=== PATIENT | female | born 1955 | race Caucasian/White ===

== ENCOUNTER 2017-10-27 12:29 | Emergency (ER) | payer OTHER ==
[2017-10-27 15:22] LABS: WHITE BLOOD COUNT 8.7 10^3/ul (4.8-10.8)
[2017-10-27 15:22] LABS: ABNORMAL IP MESSAGE 1; HEMATOCRIT 39.1 % (37.0-47.0); HEMOGLOBIN 13.1 g/dl (12.0-16.0); MEAN CORPUSCULAR HEMOGLOBIN 30.3 pg (29.0-33.0); MEAN CORPUSCULAR HGB CONC 33.5 g/dl (32.0-37.0); MEAN CORPUSCULAR VOLUME 90.3 fl (82.0-101.0); MEAN PLATELET VOLUME 13.2 fl (7.4-10.4); PLATELET COUNT 167 10^3/UL (140-415); RED BLOOD COUNT 4.33 10^6/ul (4.20-5.40); RED CELL DISTRIBUTION WIDTH 13.8 % (11.5-14.5)
[2017-10-27 15:24] LABS: ADD MAN DIFF? YES; POSITIVE DIFF @See below
[2017-10-27 15:28] LABS: ADD UMIC NO; UR ASCORBIC ACID NEGATIVE (NEGATIVE); UR BILIRUBIN (Dip) NEGATIVE (NEGATIVE); UR BLOOD (Dip) NEGATIVE (NEGATIVE); UR CLARITY CLEAR (CLEAR); UR COLOR YELLOW (YELLOW); UR GLUCOSE (Dip) NEGATIVE (NEGATIVE); UR KETONES (Dip) NEGATIVE (NEGATIVE); UR LEUKOCYTE ESTERASE (Dip) NEGATIVE Leu/ul (NEGATIVE); UR NITRITE (Dip) NEGATIVE (NEGATIVE); UR SPECIFIC GRAVITY (Dip) 1.021 (1.003-1.030); UR TOTAL PROTEIN (Dip) NEGATIVE (NEGATIVE); UR UROBILINOGEN (Dip) NEGATIVE (NEGATIVE)
[2017-10-27] MEDS: ONDANSETRON 4 MG INJ IV (15:29)
[2017-10-27] MEDS: morphine 2 MG INJ IV (15:29)
[2017-10-27 15:37] LABS: ALANINE AMINOTRANSFERASE 33 IU/L (13-69); ALBUMIN 4.2 g/dl (3.3-4.9); ALBUMIN/GLOBULIN RATIO 1.31; ALKALINE PHOSPHATASE 158 IU/L (42-121); ANION GAP 21 (8-16); ASPARTATE AMINO TRANSFERASE 28 IU/L (15-46); BILIRUBIN,INDIRECT 0.3 mg/dl (0-1.1); BILIRUBIN,TOTAL 0.3 mg/dl (0.2-1.3); BLOOD UREA NITROGEN 26 mg/dl (7-20); CALCIUM 9.1 mg/dl (8.4-10.2); CARBON DIOXIDE 23 mmol/L (21-31); CHLORIDE 103 mmol/L (97-110); CREATININE 0.78 mg/dl (0.44-1.00); GLUCOSE 210 mg/dl (70-220); LIPASE 154 U/L (23-300); POTASSIUM 4.4 mmol/L (3.5-5.1); SODIUM 143 mmol/L (135-144); TOTAL PROTEIN 7.4 g/dl (6.1-8.1)
[2017-10-27 18:13] LABS: BAND NEUTROPHILS #M 0.2 10^3/ul (0.0-0.6); BAND NEUTROPHILS % (M) 3 % (0-4); EOSINOPHILS % (M) 2 % (0-7); LYMPHOCYTES #M 1.1 10^3/ul (0.8-2.9); LYMPHOCYTES % (M) 13 % (15-51); MONOCYTE #M 0.3 10^3/ul (0.3-0.9); MONOCYTES % (M) 4 % (0-11); PLATELET ESTIMATE NORMAL; SEG NEUT #M 6.9 10^3/ul (1.7-7.5); SEGMENTED NEUTROPHILS (M) % 79 % (39-77)
== END 2017-10-27 17:20 | disposition home or self-care (01) ==
LOC: FTE 12:29
DX: R10.11 Right upper quadrant pain (principal); R10.13 Epigastric pain; E11.9 Type 2 diabetes mellitus without complications; I10 Essential (primary) hypertension
CPT/HCPCS: 36415; 71045; 76705; 80053; 81003; 83690; 85025; 96374; 96375; 99285-25

== ENCOUNTER 2018-12-19 10:30 | Emergency (ER) | payer OTHER ==
[2018-12-19] MEDS: ONDANSETRON 4 MG INJ IV (12:09)
[2018-12-19] MEDS: BELLADONNA/PHENOBARBITAL TAB PO (12:09)
[2018-12-19] MEDS: SOD CHLORIDE 0.9% 500 ML IV (12:09)
[2018-12-19] MEDS: LIDOCAINE/MYLANTA 40 ML BTL PO (12:09)
[2018-12-19] MEDS: KETOROLAC 15 MG INJ IV (12:10)
[2018-12-19 12:40] LABS: ADD MAN DIFF? NO
[2018-12-19 12:46] LABS: WHITE BLOOD COUNT 7.6 10^3/ul (4.8-10.8)
[2018-12-19 12:46] LABS: ABNORMAL IP MESSAGE 1; BASOPHILS % 0.4 % (0.0-2.0); EOSINOPHILS # 0.2 10^3/ul (0.0-0.5); EOSINOPHILS % 3.1 % (0.0-7.0); HEMATOCRIT 40.1 % (37.0-47.0); HEMOGLOBIN 12.8 g/dl (12.0-16.0); LYMPHOCYTES # 2.1 10^3/ul (0.8-2.9); LYMPHOCYTES % 27.8 % (15.0-51.0); MEAN CORPUSCULAR HGB CONC 31.9 g/dl (32.0-37.0); MEAN CORPUSCULAR VOLUME 90.7 fl (82.0-101.0); MEAN PLATELET VOLUME 13.3 fl (7.4-10.4); MONOCYTE # 0.5 10^3/ul (0.3-0.9); NEUTROPHIL # 4.7 10^3/ul (1.6-7.5); NEUTROPHILS % 61.3 % (39.0-77.0); PLATELET COUNT 205 10^3/UL (140-415); RED BLOOD COUNT 4.42 10^6/ul (4.20-5.40); RED CELL DISTRIBUTION WIDTH 14.3 % (11.5-14.5)
[2018-12-19 12:50] LABS: ALANINE AMINOTRANSFERASE 16 IU/L (13-69); ALBUMIN 4.2 g/dl (3.3-4.9); ALKALINE PHOSPHATASE 136 IU/L (42-121); ANION GAP 11 (5-13); ASPARTATE AMINO TRANSFERASE 37 IU/L (15-46); BILIRUBIN,INDIRECT 0.1 mg/dl (0-1.1); BILIRUBIN,TOTAL 0.1 mg/dl (0.2-1.3); BLOOD UREA NITROGEN 14 mg/dl (7-20); CALCIUM 10.1 mg/dl (8.4-10.2); CARBON DIOXIDE 24 mmol/L (21-31); CHLORIDE 107 mmol/L (97-110); CREATININE 0.61 mg/dl (0.44-1.00); Estimated GFR > 60 mL/min (>60); GLUCOSE 114 mg/dl (70-220); LIPASE 79 U/L (23-300); POTASSIUM 4.2 mmol/L (3.5-5.1); SODIUM 142 mmol/L (135-144); TOTAL PROTEIN 7.7 g/dl (6.1-8.1)
[2018-12-19 12:57] LABS: POSITIVE DIFF @See below
[2018-12-19 15:16] LABS: ADD UMIC NO; UR ASCORBIC ACID NEGATIVE (NEGATIVE); UR BILIRUBIN (Dip) NEGATIVE (NEGATIVE); UR BLOOD (Dip) NEGATIVE (NEGATIVE); UR CLARITY CLEAR (CLEAR); UR COLOR YELLOW (YELLOW); UR GLUCOSE (Dip) NEGATIVE (NEGATIVE); UR KETONES (Dip) NEGATIVE (NEGATIVE); UR LEUKOCYTE ESTERASE (Dip) NEGATIVE Leu/ul (NEGATIVE); UR NITRITE (Dip) NEGATIVE (NEGATIVE); UR TOTAL PROTEIN (Dip) NEGATIVE (NEGATIVE); UR UROBILINOGEN (Dip) NEGATIVE (NEGATIVE)
== END 2018-12-19 16:08 | disposition home or self-care (01) ==
LOC: E/R 10:30
DX: R10.11 Right upper quadrant pain (principal); I10 Essential (primary) hypertension; E11.9 Type 2 diabetes mellitus without complications; R11.0 Nausea; Z79.4 Long term (current) use of insulin; Z79.82 Long term (current) use of aspirin
CPT/HCPCS: 36415; 76705; 80053; 81003; 82962; 83690; 85025; 96374; 96375; 99285-25

== ENCOUNTER 2019-07-06 08:48 | Inpatient (IN) | payer OTHER ==
[2019-07-06] MEDS: FUROSEMIDE 20 MG INJ IV (11:17)
[2019-07-06] MEDS ORDERED: ACETAMINOPHEN 325 MG TAB PO (12:00)
[2019-07-06] MEDS ORDERED: ONDANSETRON 4 MG INJ IV ×2 (12:00→14:30)
[2019-07-06] MEDS: NITROGLYCERIN 2% 1 GM OINT PKT TD (12:01)
[2019-07-06] MEDS ORDERED: DEXTROSE 50% 50 ML SYRINGE IV ×2 (14:30)
[2019-07-06] MEDS ORDERED: GLUCAGON 1 MG INJ IM (14:30)
[2019-07-06] MEDS ORDERED: GLUCOSE GEL 15 GRAM TUBE BUCCAL (14:30)
[2019-07-06] MEDS ORDERED: GLUCOSE GEL 15 GRAM TUBE PO ×2 (14:30)
[2019-07-06] MEDS ORDERED: NACL 0.9% 3 ML SYG IV (14:30)
[2019-07-06] MEDS: hydrALAzine 20 MG INJ IV (14:54)
[2019-07-06] MEDS: ACETAMINOPHEN 325 MG TAB PO (15:25)
[2019-07-06] MEDS: AMLODIPINE 5 MG TAB PO ×2 (15:43→21:28)
[2019-07-06] MEDS: ACCU-CHEK XX ×2 (17:31→20:36)
[2019-07-06] MEDS: INSULIN ASPART [NOVOLOG] 3 ML PEN SC ×3 (17:36→20:29)
[2019-07-06] MEDS: ATORVASTATIN 80 MG TAB PO (20:20)
[2019-07-06] MEDS: metFORMIN 500 MG TAB PO (20:20)
[2019-07-06] MEDS: HEPARIN 5,000 UNIT/1 ML VIAL SC (20:23)
[2019-07-06] MEDS: INSULIN GLARGINE [LANTus] (100 UNITS/ML) SYG SC (21:43)
[2019-07-06] MEDS: HYDROCODONE/APAP (5/325) TAB PO (22:35)
[2019-07-07] MEDS: hydrALAzine 20 MG INJ IV ×2 (00:04→15:39)
[2019-07-07] MEDS: ACCU-CHEK XX ×5 (02:00→21:17)
[2019-07-07] MEDS: HYDROCODONE/APAP (5/325) TAB PO ×2 (08:00→20:30)
[2019-07-07] MEDS: INSULIN ASPART [NOVOLOG] 3 ML PEN SC ×7 (08:03→20:42)
[2019-07-07] MEDS: HYDROCHLOROTHIAZIDE 25 MG TAB PO (08:39)
[2019-07-07] MEDS: ASPIRIN 81 MG TAB PO (08:39)
[2019-07-07] MEDS: BENAZEPRIL 40 MG TAB PO (08:39)
[2019-07-07] MEDS: metFORMIN 500 MG TAB PO ×2 (08:39→20:29)
[2019-07-07] MEDS: AMLODIPINE 5 MG TAB PO ×2 (08:39→20:30)
[2019-07-07] MEDS: HEPARIN 5,000 UNIT/1 ML VIAL SC ×2 (08:47→20:37)
[2019-07-07] MEDS: FUROSEMIDE 40 MG INJ IV (10:22)
[2019-07-07] MEDS: morphine 2 MG INJ IV (14:13)
[2019-07-07] MEDS ORDERED: INSULIN GLARGINE [LANTus] (100 UNITS/ML) SYG SC (20:00)
[2019-07-07] MEDS: INSULIN GLARGINE [LANTus] (100 UNITS/ML) SYG SC (20:26)
[2019-07-07] MEDS: ATORVASTATIN 80 MG TAB PO (20:29)
[2019-07-07] MEDS: BENAZEPRIL 20 MG TAB PO (20:29)
[2019-07-08] MEDS: ACCU-CHEK XX ×6 (02:16→23:17)
[2019-07-08] MEDS: INSULIN ASPART [NOVOLOG] 3 ML PEN SC ×7 (07:46→21:20)
[2019-07-08] MEDS: BENAZEPRIL 20 MG TAB PO ×2 (08:35→21:02)
[2019-07-08] MEDS: AMLODIPINE 5 MG TAB PO ×2 (08:36→21:02)
[2019-07-08] MEDS: metFORMIN 500 MG TAB PO ×2 (08:36→21:01)
[2019-07-08] MEDS: ASPIRIN 81 MG TAB PO (08:36)
[2019-07-08] MEDS: FUROSEMIDE 40 MG INJ IV (08:36)
[2019-07-08] MEDS: HEPARIN 5,000 UNIT/1 ML VIAL SC ×2 (08:47→21:16)
[2019-07-08] MEDS: ACET/BUTAL/CAFF TAB PO (10:57)
[2019-07-08] MEDS: DILTIAZEM 60 MG TAB PO ×2 (15:44→21:02)
[2019-07-08] MEDS: ATORVASTATIN 80 MG TAB PO (21:02)
[2019-07-08] MEDS: INSULIN GLARGINE [LANTus] (100 UNITS/ML) SYG SC (21:16)
[2019-07-08] MEDS: ZOLPIDEM 5 MG TAB PO (23:14)
[2019-07-09] MEDS: DILTIAZEM 60 MG TAB PO ×3 (00:30→12:53)
[2019-07-09] MEDS: ACCU-CHEK XX ×5 (02:15→20:39)
[2019-07-09] MEDS: ASPIRIN 81 MG TAB PO (08:00)
[2019-07-09] MEDS: metFORMIN 500 MG TAB PO ×2 (08:00→20:21)
[2019-07-09] MEDS: BENAZEPRIL 20 MG TAB PO ×2 (08:01→20:22)
[2019-07-09] MEDS: AMLODIPINE 5 MG TAB PO (08:01)
[2019-07-09] MEDS: INSULIN ASPART [NOVOLOG] 3 ML PEN SC ×7 (08:11→20:34)
[2019-07-09] MEDS: HEPARIN 5,000 UNIT/1 ML VIAL SC ×2 (08:11→21:09)
[2019-07-09] MEDS: FUROSEMIDE 40 MG TAB PO (08:58)
[2019-07-09] MEDS: MAGNESIUM SULFATE 4 GM/100 ML 100 ML IVPB (16:08)
[2019-07-09] MEDS: REPAGLINIDE 1 MG TAB PO (17:26)
[2019-07-09] MEDS: ATORVASTATIN 80 MG TAB PO (20:21)
[2019-07-09] MEDS: DILTIAZEM (CD) 120 MG CAP PO (20:22)
[2019-07-09] MEDS: INSULIN GLARGINE [LANTus] (100 UNITS/ML) SYG SC (20:35)
[2019-07-10] MEDS: ACCU-CHEK XX ×3 (01:42→11:44)
[2019-07-10] MEDS: ASPIRIN 81 MG TAB PO (08:41)
[2019-07-10] MEDS: BENAZEPRIL 20 MG TAB PO (08:41)
[2019-07-10] MEDS: metFORMIN 500 MG TAB PO (08:42)
[2019-07-10] MEDS: DILTIAZEM (CD) 120 MG CAP PO (08:42)
[2019-07-10] MEDS: AMLODIPINE 5 MG TAB PO (08:42)
[2019-07-10] MEDS: HEPARIN 5,000 UNIT/1 ML VIAL SC (08:52)
[2019-07-10] MEDS: INSULIN ASPART [NOVOLOG] 3 ML PEN SC ×4 (08:52→12:35)
[2019-07-10] MEDS: HYDROCODONE/APAP (5/325) TAB PO (09:06)
[2019-07-10] MEDS: REPAGLINIDE 1 MG TAB PO ×2 (09:13→11:44)
[2019-07-10] MEDS: ACETAMINOPHEN 325 MG TAB PO (14:37)
== END 2019-07-10 16:39 | disposition home or self-care (01) | DRG 292 ==
LOC: E/R 08:48 → TEL 12:02
DX: I11.0 Hypertensive heart disease with heart failure (principal); I47.1 Supraventricular tachycardia; I16.1 Hypertensive emergency; I50.33 Acute on chronic diastolic (congestive) heart failure; E78.5 Hyperlipidemia, unspecified; Z79.4 Long term (current) use of insulin; I16.0 Hypertensive urgency; E11.65 Type 2 diabetes mellitus with hyperglycemia; E66.9 Obesity, unspecified; Z68.34 Body mass index [BMI] 34.0-34.9, adult; R51 Headache
CPT/HCPCS: 36415; 70450; 71045; 74176; 80048; 80053; 80061; 82550; 82553; 82962; 83036; 83690; 83735; 83880; 84100; 84436; 84443; 84479; 84484; 85025; 93005; 93306; 96374; 99285-25; G0378